=== PATIENT | female | born 1965 | race American Indian/Alaskan Native ===

== ENCOUNTER 2019-03-02 06:55 | Emergency (ER) | payer MEDICAID ==
[2019-03-02] MEDS ORDERED: DUONEB *Not for PRN Use IH ONE ×2 (08:28→10:29)
--- NOTE | 2019-03-02 09:06 | XRay Report ---
AP CHEST: HISTORY: Difficulty in breathing Moderate emphysematous changes are identified in the upper lung zones. No evidence for infiltrate, pleural fluid or pneumothorax. Heart and mediastinal structures are within normal limits. The bony structures are grossly intact. IMPRESSION: Emphysema.
[2019-03-02 09:19] LABS: Basophils % (Auto) 0.3 % (0.0-1.8); Eosinophils % (Auto) 0.5 % (0.0-4.3); Hematocrit 34.7 % (30.3-42.9); Hemoglobin 11.3 gm/dl (10.1-14.3); Lymphocytes # (Auto) 0.6 K/mm3 (1.2-5.4); Lymphocytes % (Auto) 11.8 % (13.4-35.0); Mean Corpuscular HGB Conc 33 % (30-34); Mean Corpuscular Volume 74 fl (79-97); Monocytes # (Auto) 0.1 K/mm3 (0.0-0.8); Monocytes % (Auto) 2.9 % (0.0-7.3); Platelet Count 278 K/mm3 (140-440); Red Blood Count 4.71 M/mm3 (3.65-5.03); Red Cell Distribution Width 16.1 % (13.2-15.2)
[2019-03-02 09:33] LABS: INR 0.91 (0.87-1.13)
[2019-03-02 09:34] LABS: Partial Thromboplastin Time 25.2 Sec. (24.2-36.6)
[2019-03-02 09:40] LABS: BUN/Creatinine Ratio 17; Blood Urea Nitrogen 15 mg/dL (7-17); Calcium 8.8 mg/dL (8.4-10.2); Hemolysis Index 0
[2019-03-02 09:41] LABS: Creatine Kinase MB 2.3 ng/mL (0.0-4.0)
[2019-03-02] MEDS ORDERED: DELTASONE PO ONE (10:01)
--- NOTE | 2019-03-02 10:04 | Emergency Department Report ---
ED Shortness of Breath HPI - General Chief Complaint: Dyspnea/Respdistress Stated Complaint: BOAZ Time Seen by Provider: 03/02/19 08:28 Source: patient Mode of arrival: Ambulatory Limitations: No Limitations - History of Present Illness Initial Comments: 53-year-old female states that she is "rushing and panicking". Patient resides in a homeless senior care. Apparently she was trying to get back to receive some personal belongings. She stated that she was late and the senior care was locked. She had shortness of breath. She was transported via EMS for further care and evaluation. Apparently she has a history of COPD. She denies chest pain. She denies recent cough fever or chills. She is not complaining of leg edema. She does mention that she has had some pain affecting her right lower extremity. Initially she states the knee and then later the entire extremity. MD Complaint: shortness of breath, anxiety -: Gradual Known History Of: COPD Context: occured during exertion - Related Data Previous Rx's Medication Instructions Recorded Last Taken Type predniSONE [Deltasone] 40 mg PO QDAY #10 tab 03/02/19 Unknown Rx Allergies Allergy/AdvReac Type Severity Reaction Status Date / Time aspirin Allergy Itching Verified 03/02/19 07:09 codeine Allergy Itching Verified 03/02/19 07:09 ED Review of Systems ROS: Stated complaint: BOAZ Other details as noted in HPI Constitutional: denies: chills, fever Eyes: denies: eye pain, eye discharge, vision change ENT: denies: ear pain, throat pain Respiratory: shortness of breath, wheezing. denies: cough Cardiovascular: denies: chest pain, palpitations Endocrine: no symptoms reported Gastrointestinal: denies: abdominal pain, nausea, diarrhea Genitourinary: denies: urgency, dysuria, discharge Musculoskeletal: as per HPI. denies: back pain, joint swelling, arthralgia Skin: denies: rash, lesions Neurological: denies: headache, weakness, paresthesias Psychiatric: denies: anxiety, depression Hematological/Lymphatic: denies: easy bleeding, easy bruising ED Past Medical Hx - Past Medical History Hx Arthritis: Yes Hx Asthma: Yes Additional medical history: emphysema - Surgical History Hx Breast Surgery: Yes Additional Surgical History: tubal ligation - Social History Smoking Status: Never Smoker Substance Use Type: None - Medications Home Medications: Home Medications Medication Instructions Recorded Confirmed Last Taken Type predniSONE [Deltasone] 40 mg PO QDAY #10 tab 03/02/19 Unknown Rx ED Physical Exam - General Limitations: No Limitations General appearance: alert, in no apparent distress, other (somewhat tachypneic) - Head Head exam: Present: atraumatic, normocephalic - Eye Eye exam: Present: normal appearance. Absent: scleral icterus - ENT ENT exam: Present: mucous membranes moist - Neck Neck exam: Present: normal inspection - Respiratory Respiratory exam: Present: decreased breath sounds, prolonged expiratory. Absent: respiratory distress, accessory muscle use - Cardiovascular Cardiovascular Exam: Present: regular rate, normal rhythm. Absent: systolic murmur, diastolic murmur, rubs, gallop - GI/Abdominal GI/Abdominal exam: Present: soft, normal bowel sounds. Absent: distended, tenderness, guarding, rebound, rigid - Extremities Exam Extremities exam: Present: normal inspection, joint swelling (right knee), other (perhaps some chronic right knee deformity). Absent: pedal edema, calf tenderness - Back Exam Back exam: Present: normal inspection - Neurological Exam Neurological exam: Present: alert, oriented X3, CN II-XII intact. Absent: motor sensory deficit - Psychiatric Psychiatric exam: Present: normal affect, normal mood - Skin Skin exam: Present: warm, dry, intact, normal color. Absent: rash ED Course Vital Signs 03/02/19 03/02/19 03/02/19 07:09 08:15 08:52 Temperature 97.8 F 97.7 F Pulse Rate 72 65 Pulse Rate [ 72 Anterior Bilateral Throughout] Respiratory 18 25 H Rate Respiratory 20 Rate [Anterior Bilateral Throughout] Blood Pressure 146/62 Blood Pressure 146/73 [Right] O2 Sat by Pulse 95 98 Oximetry 03/02/19 03/02/19 03/02/19 09:15 10:33 10:52 Temperature 98 F Pulse Rate 64 Pulse Rate [ 68 70 Anterior Bilateral Throughout] Respiratory 25 H Rate Respiratory 20 20 Rate [Anterior Bilateral Throughout] Blood Pressure Blood Pressure 112/55 [Right] O2 Sat by Pulse 95 Oximetry 03/02/19 11:07 Temperature Pulse Rate Pulse Rate [ 72 Anterior Bilateral Throughout] Respiratory Rate Respiratory 20 Rate [Anterior Bilateral Throughout] Blood Pressure Blood Pressure [Right] O2 Sat by Pulse Oximetry - Reevaluation(s) Reevaluation #1: Given a neb with improvement. By mouth prednisone. Chest x-ray nothing acute. 03/02/19 10:07 Reevaluation #2: Discussed with lift team technician. She states no DVT. She also mentions incidentally that there is triphasic flow throughout the circulation of the right lower extremity. 03/02/19 10:08 ED Medical Decision Making - Lab Data Result diagrams: 03/02/19 08:50 03/02/19 08:50 Laboratory Results - last 24 hr 03/02/19 03/02/19 03/02/19 08:50 08:50 08:50 WBC 5.1 RBC 4.71 Hgb 11.3 Hct 34.7 MCV 74 L MCH 24 L MCHC 33 RDW 16.1 H Plt Count 278 Lymph % (Auto) 11.8 L [place] % (Auto) 2.9 Eos % (Auto) 0.5 Baso % (Auto) 0.3 Lymph # 0.6 L [place] # 0.1 Eos # 0.0 Baso # 0.0 Seg Neutrophils % 84.5 H Seg Neutrophils # 4.3 PT INR APTT D-Dimer Sodium 142 Potassium 4.0 Chloride 108.3 H Carbon Dioxide 22 Anion Gap 16 BUN 15 Creatinine 0.9 Estimated GFR > 60 BUN/Creatinine Ratio 17 Glucose 106 H Lactic Acid 1.50 Calcium 8.8 Magnesium 2.10 CK-MB (CK-2) Troponin T NT-Pro-B Natriuret Pep 03/02/19 03/02/19 03/02/19 08:50 08:50 08:50 WBC RBC Hgb Hct MCV MCH MCHC RDW Plt Count Lymph % (Auto) [place] % (Auto) Eos % (Auto) Baso % (Auto) Lymph # [place] # Eos # Baso # Seg Neutrophils % Seg Neutrophils # PT 12.8 INR 0.91 APTT 25.2 D-Dimer 141.38 Sodium Potassium Chloride Carbon Dioxide Anion Gap BUN Creatinine Estimated GFR BUN/Creatinine Ratio Glucose Lactic Acid Calcium Magnesium CK-MB (CK-2) 2.3 Troponin T < 0.010 NT-Pro-B Natriuret Pep 98.87 Laboratory Results - last 24 hr 03/02/19 03/02/19 03/02/19 08:50 08:50 08:50 WBC 5.1 RBC 4.71 Hgb 11.3 Hct 34.7 MCV 74 L MCH 24 L MCHC 33 RDW 16.1 H Plt Count 278 Lymph % (Auto) 11.8 L [place] % (Auto) 2.9 Eos % (Auto) 0.5 Baso % (Auto) 0.3 Lymph # 0.6 L [place] # 0.1 Eos # 0.0 Baso # 0.0 Seg Neutrophils % 84.5 H Seg Neutrophils # 4.3 PT INR APTT D-Dimer Sodium 142 Potassium 4.0 Chloride 108.3 H Carbon Dioxide 22 Anion Gap 16 BUN 15 Creatinine 0.9 Estimated GFR > 60 BUN/Creatinine Ratio 17 Glucose 106 H Lactic Acid 1.50 Calcium 8.8 Magnesium 2.10 Total Creatine Kinase CK-MB (CK-2) CK-MB (CK-2) Rel Index Troponin T NT-Pro-B Natriuret Pep Urine Color Urine Turbidity Urine pH Ur Specific [place] Urine Protein Urine Glucose (UA) Urine Ketones Urine Blood Urine Nitrite Ur Reducing Substances Urine Bilirubin Urine Ictotest Urine Urobilinogen Ur Leukocyte Esterase Urine WBC (Auto) Urine RBC (Auto) U Epithel Cells (Auto) Urine Mucus Urine Opiates Screen Urine Methadone Screen Ur Barbiturates Screen Ur Phencyclidine Scrn Ur Amphetamines Screen U Benzodiazepines Scrn Urine Cocaine Screen U Marijuana (THC) Screen Drugs of Abuse Note 03/02/19 03/02/19 03/02/19 08:50 08:50 08:50 WBC RBC Hgb Hct MCV MCH MCHC RDW Plt Count Lymph % (Auto) [place] % (Auto) Eos % (Auto) Baso % (Auto) Lymph # [place] # Eos # Baso # Seg Neutrophils % Seg Neutrophils # PT 12.8 INR 0.91 APTT 25.2 D-Dimer 141.38 Sodium Potassium Chloride Carbon Dioxide Anion Gap BUN Creatinine Estimated GFR BUN/Creatinine Ratio Glucose Lactic Acid Calcium Magnesium Total Creatine Kinase 170 H CK-MB (CK-2) 2.3 CK-MB (CK-2) Rel Index 1.3 Troponin T < 0.010 NT-Pro-B Natriuret Pep 98.87 Urine Color Urine Turbidity Urine pH Ur Specific [place] Urine Protein Urine Glucose (UA) Urine Ketones Urine Blood Urine Nitrite Ur Reducing Substances Urine Bilirubin Urine Ictotest Urine Urobilinogen Ur Leukocyte Esterase Urine WBC (Auto) Urine RBC (Auto) U Epithel Cells (Auto) Urine Mucus Urine Opiates Screen Urine Methadone Screen Ur Barbiturates Screen Ur Phencyclidine Scrn Ur Amphetamines Screen U Benzodiazepines Scrn Urine Cocaine Screen U Marijuana (THC) Screen Drugs of Abuse Note 03/02/19 03/02/19 10:33 10:33 WBC RBC Hgb Hct MCV MCH MCHC RDW Plt Count Lymph % (Auto) [place] % (Auto) Eos % (Auto) Baso % (Auto) Lymph # [place] # Eos # Baso # Seg Neutrophils % Seg Neutrophils # PT INR APTT D-Dimer Sodium Potassium Chloride Carbon Dioxide Anion Gap BUN Creatinine Estimated GFR BUN/Creatinine Ratio Glucose Lactic Acid Calcium Magnesium Total Creatine Kinase CK-MB (CK-2) CK-MB (CK-2) Rel Index Troponin T NT-Pro-B Natriuret Pep Urine Color Yellow Urine Turbidity Slightly-cloudy Urine pH 5.0 Ur Specific [place] 1.026 Urine Protein <15 mg/dl Urine Glucose (UA) Neg Urine Ketones Tr Urine Blood Sm Urine Nitrite Neg Ur Reducing Substances Not Reportable Urine Bilirubin Neg Urine Ictotest Not Reportable Urine Urobilinogen < 2.0 Ur Leukocyte Esterase Neg Urine WBC (Auto) 1.0 Urine RBC (Auto) 4.0 U Epithel Cells (Auto) 9.0 Urine Mucus 1+ Urine Opiates Screen Presumptive negative Urine Methadone Screen Presumptive negative Ur Barbiturates Screen Presumptive negative Ur Phencyclidine Scrn Presumptive negative Ur Amphetamines Screen Presumptive negative U Benzodiazepines Scrn Presumptive negative Urine Cocaine Screen Presumptive negative U Marijuana (THC) Screen Presumptive negative Drugs of Abuse Note Disclamer Critical care attestation.: If time is entered above; I have spent that time in minutes in the direct care of this critically ill patient, excluding procedure time. ED Disposition Clinical Impression: COPD exacerbation Disposition: DC-01 TO HOME OR SELFCARE Is pt being admited?: No Does the pt Need Aspirin: No Condition: Stable Instructions: Chronic Obstructive Pulmonary Disease (ED) Additional Instructions: Avoid smoking. Rx prednisone. Follow up with primary care. Return any acute change or problem. Prescriptions: predniSONE [Deltasone] 40 mg PO QDAY #10 tab Referrals: CODI ESTRELLA MD [Primary Care Provider] - 3-5 Days [facility] [Provider Group] - 3-5 Days Time of Disposition: 12:04
[2019-03-02] MEDS ORDERED: ATIVAN PO ONE (10:25)
[2019-03-02 11:11] LABS: Mucus,Urine 1+ /HPF
[2019-03-02 11:12] LABS: Bilirubin,Urine NEG (Negative); Blood,Urine SM (Negative); Color,Urine Yellow (Yellow); Protein,Urine <15 mg/dL mg/dL (Negative); Urobilinogen,Urine < 2.0 mg/dL (<2.0)
[2019-03-02 11:21] LABS: Amphetamine Screen,Urine PRESUMPTIVE NEGATIVE; Benzodiazepines Screen,Urine PRESUMPTIVE NEGATIVE; Cannabinoid Screen,Urine PRESUMPTIVE NEGATIVE; Cocaine Screen,Urine PRESUMPTIVE NEGATIVE; Methadone Screen,Urine PRESUMPTIVE NEGATIVE; Opiate Screen,Urine PRESUMPTIVE NEGATIVE
--- NOTE | 2019-03-02 11:22 | Vascular Lab Report ---
PROCEDURE: VL VENOUS DUPLEX LE RT TECHNIQUE: Duplex Doppler sonography of the right lower extremity. Pierce scale imaging with and witho ut compression, spectral waveform analysis with and without augmentation, and color flow Doppler were employed. HISTORY: right leg pain COMPARISONS: None FINDINGS: Deep Venous Thrombus: None Superficial Venous Thrombus: None Venous valvular incompetence: None Soft tissue abnormality: None IMPRESSION: No evidence of deep venous thrombosis. This document is electronically signed by Kaley Wesley MD., Mar 02 2019 11:20:48 AM ET
[2019-03-02 17:26] VITALS: BP 120/86
== END 2019-03-02 17:10 | disposition home or self-care (01) ==
LOC: ED 06:55
DX: J44.1 Chronic obstructive pulmonary disease with (acute) exacerbation (principal); M25.561 Pain in right knee; G89.29 Other chronic pain; M19.90 Unspecified osteoarthritis, unspecified site; Z98.51 Tubal ligation status; Z88.6 Allergy status to analgesic agent; Z88.4 Allergy status to anesthetic agent
CPT/HCPCS: 36415; 71045; 80048; 80307; 81001; 82140; 82550; 82553; 83735; 83880; 84484; 85025; 85379; 85610; 85730; 87040; 93005; 93010; 93971; 94640; 99285; J7512

== ENCOUNTER 2019-03-06 21:36 | Inpatient (IN) | payer MEDICAID ==
[2019-03-06] MEDS ORDERED: PROVENTIL IH ONE (21:46)
[2019-03-06] MEDS ORDERED: ATROVENT IH ONE (21:46)
[2019-03-06] MEDS ORDERED: MAGNESIUM SULFATE 2GM/50ML 2 GM/50 ML BAG IV ONE (21:47)
--- NOTE | 2019-03-06 21:52 | Emergency Department Report ---
HPI - General Time Seen by Provider: 03/06/19 21:39 - HPI HPI: Room 24 The patient is a 53-year-old female presenting with chief complaint shortness of breath. Patient states for the past 2-3 weeks she's had constant COPD exacerbation. The patient states she initially had a dry cough but has now become productive of yellowish-green sputum. Patient denies history of fever. EMS was called to the patient's home for shortness of breath this evening and the report finding the patient satting approximately 88% on room air. The patient was a portable machine cutter Solu-Medrol 125 mg IV and a DuoNeb prior to arrival. Patient presents still audibly wheezing with accessory muscle use Location: Lungs Duration: 2-3 weeks Quality: Shortness of breath Severity: Moderate Modifying factors: [see above] Context: [see above] Mode of transportation: [not driving] ED Past Medical Hx - Past Medical History Hx Arthritis: Yes Hx Asthma: Yes Hx COPD: Yes (no home O2) - Surgical History Hx Breast Surgery: Yes Additional Surgical History: tubal ligation, pins placed in bilateral small fingers - Family History Family history: no significant - Social History Smoking Status: Current Every Day Smoker (1 cigarette daily) Substance Use Type: None - Medications Home Medications: Home Medications Medication Instructions Recorded Confirmed Last Taken Type predniSONE [Deltasone] 40 mg PO QDAY #10 tab 03/02/19 Unknown Rx ED Review of Systems ROS: Stated complaint: BOAZ Other details as noted in HPI Constitutional: denies: fever Eyes: denies: eye pain ENT: denies: throat pain Respiratory: cough, shortness of breath Cardiovascular: denies: chest pain Endocrine: no symptoms reported Gastrointestinal: denies: abdominal pain Genitourinary: denies: dysuria Musculoskeletal: denies: back pain Neurological: denies: headache Physical Exam - Physical Exam Physical Exam: GENERAL: The patient is well-developed well-nourished female lying on stretcher with audible wheezing. [] HEENT: Normocephalic. Atraumatic. Extraocular motions are intact. Patient has moist mucous membranes. NECK: Supple. Trachea midline CHEST/LUNGS: Diffuse wheezing. Accessory muscle use HEART/CARDIOVASCULAR: Regular. There is no tachycardia. There is no gallop rub or murmur. ABDOMEN: Abdomen is soft, nontender. Patient has normal bowel sounds. There is no abdominal distention. SKIN: There is no rash. There is no edema. There is no diaphoresis. NEURO: The patient is awake, alert, and oriented. The patient is cooperative. The patient has normal speech MUSCULOSKELETAL: There is no evidence of acute injury. ED Course - Reevaluation(s) Reevaluation #1: 03/06/19 22:35 Patient states she is improved slightly with BiPAP but still exhibits increased work of breathing. ED Medical Decision Making - Lab Data Result diagrams: 03/06/19 21:54 03/06/19 21:54 Laboratory Tests 03/06/19 03/06/19 21:54 21:54 WBC 7.7 RBC 4.50 Hgb 10.7 Hct 33.0 MCV 73 L MCH 24 L MCHC 32 RDW 16.1 H Plt Count 262 Lymph % (Auto) 9.9 L [place] % (Auto) 7.9 H Eos % (Auto) 0.1 Baso % (Auto) 0.7 Lymph # 0.8 L [place] # 0.6 Eos # 0.0 Baso # 0.1 Seg Neutrophils % 81.4 H Seg Neutrophils # 6.3 Sodium 144 Potassium 3.4 L Chloride 107.0 Carbon Dioxide 22 Anion Gap 18 BUN 22 H Creatinine 0.9 Estimated GFR > 60 BUN/Creatinine Ratio 24 Glucose 153 H Calcium 8.9 NT-Pro-B Natriuret Pep 240.2 - Radiology Data Radiology results: image reviewed (chest x-ray) interpreted by me: Chest x-ray-left lower lobe atelectasis. No pneumothorax - Differential Diagnosis COPD exacerbation, pneumonia, bronchitis, CHF Critical care attestation.: If time is entered above; I have spent that time in minutes in the direct care of this critically ill patient, excluding procedure time. ED Disposition Clinical Impression: COPD exacerbation, Shortness of breath Disposition: OP ADMIT IP TO THIS HOSP Is pt being admited?: Yes Does the pt Need Aspirin: No Condition: Stable Instructions: Chronic Obstructive Pulmonary Disease (ED) Referrals: PRIMARY CARE, [Primary Care Provider] - 3-5 Days Time of Disposition: 22:36 (Hospitalist paged. (Dr. Kristen Dai))
[2019-03-06 22:11] LABS: Basophils # (Auto) 0.1 K/mm3 (0.0-0.1); Basophils % (Auto) 0.7 % (0.0-1.8); Eosinophils % (Auto) 0.1 % (0.0-4.3); Hemoglobin 10.7 gm/dl (10.1-14.3); Lymphocytes # (Auto) 0.8 K/mm3 (1.2-5.4); Lymphocytes % (Auto) 9.9 % (13.4-35.0); Mean Corpuscular HGB Conc 32 % (30-34); Mean Corpuscular Volume 73 fl (79-97); Monocytes # (Auto) 0.6 K/mm3 (0.0-0.8); Monocytes % (Auto) 7.9 % (0.0-7.3); Platelet Count 262 K/mm3 (140-440); Red Cell Distribution Width 16.1 % (13.2-15.2)
[2019-03-06 22:26] LABS: BUN/Creatinine Ratio 24; Blood Urea Nitrogen 22 mg/dL (7-17); Calcium 8.9 mg/dL (8.4-10.2); Hemolysis Index 8
--- NOTE | 2019-03-06 23:07 | XRay Report ---
PROCEDURE: XR CHEST 1V AP TECHNIQUE: Chest radiograph single view. HISTORY: shortness of breath COMPARISONS: None . FINDINGS: Heart: Normal. Mediastinum/Vessels: Normal. Lungs/Pleural space: Lungs are emphysematous with bullous formation is noted in the right upper lobe .. There are no confluent infiltrates or mass lesions. Pleural spaces are clear. Bony thorax: No acute osseous abnormality. Life support devices: None. IMPRESSION: Emphysema with bullous formation. No acute pulmonary process. This document is electronically signed by Shiva Juarez MD., Mar 06 2019 11:05:53 PM ET
[2019-03-06] MEDS ORDERED: SODIUM CHLORIDE FLUSH SYRINGE 10 ML IV PRN (23:14)
[2019-03-06] MEDS ORDERED: PROVENTIL IH PRN (23:14)
[2019-03-06] MEDS ORDERED: ZOFRAN IV PRN (23:14)
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
[2019-03-06] MEDS ORDERED: K-DUR PO ONE (23:44)
[2019-03-06] MEDS ORDERED: APRESOLINE IV PRN (23:44)
[2019-03-06] MEDS ORDERED: NACL 0.9% 1000 ML 1,000 ML IV SCH (23:45)
[2019-03-07] MEDS ORDERED: K-DUR PO ONE (00:58)
[2019-03-07] MEDS: DUONEB *Not for PRN Use IH SCH ×4 (02:20→20:05)
[2019-03-07] MEDS ORDERED: SOLU-Medrol IV SCH ×2 (05:00→06:00)
[2019-03-07] MEDS: SOLU-Medrol IV SCH ×3 (05:18→17:50)
[2019-03-07 06:54] LABS: Basophils % (Auto) 0.1 % (0.0-1.8); Hematocrit 31.1 % (30.3-42.9); Hemoglobin 10.2 gm/dl (10.1-14.3); Lymphocytes # (Auto) 0.5 K/mm3 (1.2-5.4); Lymphocytes % (Auto) 10.7 % (13.4-35.0); Mean Corpuscular HGB Conc 33 % (30-34); Mean Corpuscular Volume 73 fl (79-97); Monocytes # (Auto) 0.1 K/mm3 (0.0-0.8); Monocytes % (Auto) 1.9 % (0.0-7.3); Platelet Count 267 K/mm3 (140-440); Red Blood Count 4.26 M/mm3 (3.65-5.03); Red Cell Distribution Width 15.8 % (13.2-15.2)
[2019-03-07 07:16] LABS: BUN/Creatinine Ratio 23; Blood Urea Nitrogen 14 mg/dL (7-17); Calcium 8.3 mg/dL (8.4-10.2); Hemolysis Index 3
[2019-03-07] MEDS: PULMICORT IH SCH ×2 (07:54→20:05)
[2019-03-07] MEDS: ULTRAM PO PRN ×2 (09:59→14:58)
[2019-03-07] MEDS: LEVAQUIN 500MG/100ML 500 MG/100 ML BAG IV SCH (09:59)
[2019-03-07] MEDS: HABITROL TD SCH (10:00)
[2019-03-07] MEDS: COLACE PO SCH ×2 (10:00→21:49)
[2019-03-07] MEDS: HEPARIN SUB-Q SCH ×3 (10:00→22:39)
[2019-03-07] MEDS: SODIUM CHLORIDE FLUSH SYRINGE 10 ML IV SCH ×2 (10:00→22:39)
[2019-03-07] MEDS ORDERED: NORVASC PO SCH (10:00)
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
[2019-03-07] MEDS: TYLENOL PO PRN ×2 (13:00→21:55)
[2019-03-07] MEDS: TESSALON PERLES PO SCH ×2 (14:59→21:49)
[2019-03-07] MEDS: CEPACOL X STRENGTH MM PRN (18:43)
[2019-03-07] MEDS: BENADRYL PO PRN (21:55)
[2019-03-08] MEDS: SOLU-Medrol IV SCH ×4 (00:43→19:32)
[2019-03-08] MEDS: DUONEB *Not for PRN Use IH SCH ×4 (02:28→19:23)
[2019-03-08] MEDS: TESSALON PERLES PO SCH ×3 (05:58→21:43)
[2019-03-08] MEDS: PULMICORT IH SCH ×2 (07:58→19:24)
[2019-03-08] MEDS: LEVAQUIN 500MG/100ML 500 MG/100 ML BAG IV SCH (11:51)
[2019-03-08] MEDS: HABITROL TD SCH (11:53)
[2019-03-08] MEDS: HEPARIN SUB-Q SCH ×2 (11:53→21:59)
[2019-03-08] MEDS: SODIUM CHLORIDE FLUSH SYRINGE 10 ML IV SCH ×2 (11:54→21:44)
[2019-03-08] MEDS: COLACE PO SCH ×2 (11:54→21:43)
[2019-03-08] MEDS: TYLENOL PO PRN (12:11)
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
[2019-03-08] MEDS: BENADRYL PO PRN (15:12)
[2019-03-09] MEDS: SOLU-Medrol IV SCH ×4 (00:17→19:27)
[2019-03-09] MEDS: CEPACOL X STRENGTH MM PRN ×2 (00:30→12:10)
[2019-03-09] MEDS: TYLENOL PO PRN ×2 (01:54→12:06)
[2019-03-09] MEDS: DUONEB *Not for PRN Use IH SCH ×5 (02:02→21:06)
[2019-03-09] MEDS: PULMICORT IH SCH ×3 (06:48→21:06)
[2019-03-09] MEDS: TESSALON PERLES PO SCH ×3 (07:10→21:48)
[2019-03-09] MEDS: HEPARIN SUB-Q SCH ×4 (12:00→21:51)
[2019-03-09] MEDS: LEVAQUIN 500MG/100ML 500 MG/100 ML BAG IV SCH (12:00)
[2019-03-09] MEDS: COLACE PO SCH ×2 (12:03→21:48)
[2019-03-09] MEDS: HABITROL TD SCH (12:08)
[2019-03-09] MEDS: SODIUM CHLORIDE FLUSH SYRINGE 10 ML IV SCH ×2 (12:08→21:48)
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
[2019-03-10] MEDS: SOLU-Medrol IV SCH ×4 (01:04→17:17)
[2019-03-10] MEDS: TYLENOL PO PRN ×2 (01:04→06:06)
[2019-03-10] MEDS: TESSALON PERLES PO SCH ×3 (06:06→21:42)
[2019-03-10] MEDS: PULMICORT IH SCH ×2 (08:10→19:35)
[2019-03-10] MEDS: DUONEB *Not for PRN Use IH SCH ×4 (08:10→19:35)
[2019-03-10] MEDS: LEVAQUIN 500MG/100ML 500 MG/100 ML BAG IV SCH (09:19)
[2019-03-10] MEDS: ULTRAM PO PRN (09:19)
[2019-03-10] MEDS: COLACE PO SCH ×2 (09:19→21:41)
[2019-03-10] MEDS: HEPARIN SUB-Q SCH ×2 (09:20→21:41)
[2019-03-10] MEDS: SODIUM CHLORIDE FLUSH SYRINGE 10 ML IV SCH ×2 (09:20→21:42)
[2019-03-10] MEDS: HABITROL TD SCH (09:20)
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
--- NOTE | 2019-03-10 15:20 | Cat Scan Report ---
CTA CHEST: HISTORY: Short of breath. COMPARISON: none. TECHNIQUE: Helical CT in 1.25mm intervals following IV contrast. Pulmonary embolus protocol. Sagittal and coronal reformatted images. Rotational MIP images. FINDINGS: Contrast bolus is satisfactory. No pulmonary embolus is identified. Thyroid gland: Normal. Tracheobronchial tree: Normal. Esophagus: Normal. Heart: Normal. Pericardium: Normal. Mediastinum: Normal. Lung Ambriz: Moderate centrilobular emphysematous changes are identified in both upper lobes. No evidence for infiltrate, nodule or interstitial lung disease. Pleural Spaces: Normal. Musculoskeletal: Intact. IMPRESSION: No evidence for pulmonary embolus. Emphysematous changes.
[2019-03-10] MEDS: celeXA PO SCH (21:45)
[2019-03-10] MEDS: PROTONIX PO SCH (21:46)
[2019-03-11] MEDS: TYLENOL PO PRN (00:04)
[2019-03-11] MEDS: SOLU-Medrol IV SCH ×4 (00:04→18:14)
[2019-03-11] MEDS: TESSALON PERLES PO SCH ×3 (05:42→21:42)
[2019-03-11] MEDS: ULTRAM PO PRN ×2 (05:43→21:47)
[2019-03-11] MEDS: DUONEB *Not for PRN Use IH SCH ×3 (07:58→19:55)
[2019-03-11] MEDS: PULMICORT IH SCH ×2 (07:58→19:55)
[2019-03-11] MEDS: HEPARIN SUB-Q SCH ×3 (11:54→21:42)
[2019-03-11] MEDS: COLACE PO SCH ×2 (11:54→21:42)
[2019-03-11] MEDS: celeXA PO SCH (11:54)
[2019-03-11] MEDS: SODIUM CHLORIDE FLUSH SYRINGE 10 ML IV SCH ×2 (11:55→21:42)
[2019-03-11] MEDS: LEVAQUIN 500MG/100ML 500 MG/100 ML BAG IV SCH (11:55)
[2019-03-11] MEDS: PROTONIX PO SCH (11:55)
[2019-03-11] MEDS: HABITROL TD SCH ×2 (11:55→12:01)
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
[2019-03-11] MEDS: BROVANA NEBU IH SCH (19:55)
[2019-03-12] MEDS: SOLU-Medrol IV SCH ×3 (02:52→17:17)
[2019-03-12] MEDS: TESSALON PERLES PO SCH ×2 (06:00→14:19)
[2019-03-12] MEDS: BROVANA NEBU IH SCH (08:56)
[2019-03-12] MEDS: PULMICORT IH SCH (08:56)
[2019-03-12] MEDS: DUONEB *Not for PRN Use IH SCH ×2 (08:57→15:03)
[2019-03-12] MEDS: HEPARIN SUB-Q SCH (09:05)
[2019-03-12] MEDS: COLACE PO SCH (09:12)
[2019-03-12] MEDS: celeXA PO SCH (09:17)
[2019-03-12] MEDS: HABITROL TD SCH (09:18)
[2019-03-12] MEDS ORDERED: LEVAQUIN PO SCH (10:15)
[2019-03-12] MEDS: SODIUM CHLORIDE FLUSH SYRINGE 10 ML IV SCH (10:29)
[2019-03-12] MEDS: PROTONIX PO SCH (10:29)
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
--- NOTE | 2019-03-12 13:03 | Progress Note ---
Assessment and Plan Acute hypoxemic respiratory failure. Acute chronic obstructive pulmonary disease exacerbation. Tobacco use disorder. Obesity. Hypokalemia, now corrected. - wean supplemental oxygen to keep O2 sat's > 90% - continue bronchodilators with pulmonary hygiene per RT (MICHAEL & LABA) - continue inhaled corticosteroids - continue systemic corticosteroids with slow taper - continue BIPAP prn for increased work of breathing - weight loss counseled - tobacco abstinence counseled - continue other care per attending / other consultants ... re-evaluate in am & prn Subjective Date of service: 03/12/19 Principal diagnosis: Ac hypoxemic resp failure; AE-COPD; Obesity; Hypokalemia Interval history: Patient is seen today for: Acute hypoxemic respiratory failure; Acute chronic obstructive pulmonary disease exacerbation; Tobacco use disorder; Obesity; Hypokalemia Seen and examined at bedside; 24hour events reviewed; nursing and respiratory care staff consulted; no adverse overnight events reported to me; tolerated BIPAP well and less SOB now; denies acute chest pains or palpitations; No N/V/F/C Objective Vital Signs - 12hr 03/12/19 03/12/19 03/12/19 05:38 08:56 09:06 Temperature 97.1 F L Pulse Rate 64 98 H Pulse Rate [ 90 95 H Anterior Bilateral Throughout] Respiratory 18 23 Rate Respiratory 23 20 Rate [Anterior Bilateral Throughout] Blood Pressure 162/85 O2 Sat by Pulse 94 95 Oximetry 03/12/19 12:24 Temperature 98.9 F Pulse Rate 60 Pulse Rate [ Anterior Bilateral Throughout] Respiratory 22 Rate Respiratory Rate [Anterior Bilateral Throughout] Blood Pressure 144/68 O2 Sat by Pulse 95 Oximetry Constitutional: no acute distress, other (middle aged obese female with mildly increased resp effort at rest) Eyes: non-icteric ENT: oropharynx moist, other (mallampati 3) Neck: supple, no lymphadenopathy, no JVD Effort: mildly labored Ascultation: Bilateral: diminished breath sounds, rhonchi Percussion: Bilateral: not dull Cardiovascular: regular rate and rhythm Gastrointestinal: normoactive bowel sounds, soft, non-tender, non-distended Integumentary: normal Extremities: no cyanosis, no edema, pulses normal, no ischemia or petechiae Neurologic: normal mental status, non-focal exam, pupils equal and round, CN II- XII normal Psychiatric: mood appropriate, affect normal CBC and BMP: 03/07/19 06:28 03/07/19 06:19 ABG, PT/INR, D-dimer: ABG POC ABG pH 7.414 (7.35-7.45) 03/10/19 13:10 POC ABG pCO2 42.9 (35-45) 03/10/19 13:10 POC ABG pO2 54 (80-105) L 03/10/19 13:10 POC ABG HCO3 27.5 (22-26 mml/L) 03/10/19 13:10 POC ABG Total CO2 29 (23-27mmol/L) 03/10/19 13:10 POC ABG O2 Sat 88 03/10/19 13:10 Abnormal lab findings: Abnormal Labs 03/06/19 03/06/19 03/06/19 21:54 21:54 23:13 WBC MCV 73 L MCH 24 L RDW 16.1 H Lymph % (Auto) 9.9 L [place] % (Auto) 7.9 H Lymph # 0.8 L Seg Neutrophils % 81.4 H POC ABG pCO2 45.2 H POC ABG pO2 Potassium 3.4 L Chloride BUN 22 H Creatinine Glucose 153 H Calcium 03/07/19 03/07/19 03/07/19 00:03 06:19 06:28 WBC 4.3 L MCV 73 L MCH 24 L RDW 15.8 H Lymph % (Auto) 10.7 L [place] % (Auto) Lymph # 0.5 L Seg Neutrophils % 87.3 H POC ABG pCO2 POC ABG pO2 55 L Potassium Chloride 107.9 H BUN Creatinine 0.6 L Glucose 139 H Calcium 8.3 L 03/10/19 13:10 WBC MCV MCH RDW Lymph % (Auto) [place] % (Auto) Lymph # Seg Neutrophils % POC ABG pCO2 POC ABG pO2 54 L Potassium Chloride BUN Creatinine Glucose Calcium Chest x-ray: image reviewed Allied health notes reviewed: nursing
--- NOTE | 2019-03-12 17:29 | Progress Note ---
Assessment and Plan Acute exacerbation COPD * Continue steroids and nebulizers, obtain CT chest today * put on bipap as she is more hypoxic with increase WOB Acute hypoxic respiratory failure Continue oxygen supplementation Dehydration Received IV fluids Hypokalemia Was replaced Hypertension Continue blood pressure medications, will be optimized Tobacco abuse Cessation counseling performed for 11 minutes, nicotine patches as needed DVT prophylaxis with Lovenox Dispo; to [facility] when improved Subjective Date of service: 03/11/19 Principal diagnosis: Ac hypoxemic resp failure; AE-COPD; Obesity; Hypokalemia Interval history: Symptomatically better Objective - Constitutional Vitals: Vital Signs - 12hr 03/12/19 03/12/19 03/12/19 05:38 08:56 09:06 Temperature 97.1 F L Pulse Rate 64 98 H Pulse Rate [ 90 95 H Anterior Bilateral Throughout] Respiratory 18 23 Rate Respiratory 23 20 Rate [Anterior Bilateral Throughout] Blood Pressure 162/85 O2 Sat by Pulse 94 95 Oximetry 03/12/19 03/12/19 03/12/19 12:24 15:03 15:13 Temperature 98.9 F Pulse Rate 60 Pulse Rate [ 77 80 Anterior Bilateral Throughout] Respiratory 22 Rate Respiratory 20 20 Rate [Anterior Bilateral Throughout] Blood Pressure 144/68 O2 Sat by Pulse 95 Oximetry General appearance: Present: no acute distress, well-nourished - EENT Eyes: PERRL, EOM intact ENT: hearing intact, clear oral mucosa Ears: bilateral: normal - Neck Neck: supple, normal ROM - Respiratory Respiratory effort: normal Respiratory: bilateral: CTA - Breasts Breasts: normal - Cardiovascular Heart rate: 76 Rhythm: regular Heart Sounds: Present: S1 & S2. Absent: gallop, rub Extremities: pulses intact, No edema, normal color, Full ROM - Gastrointestinal General gastrointestinal: Present: soft, non-tender, non-distended, normal bowel sounds - Genitourinary Female genitourinary: normal - Integumentary Integumentary: clear, warm, dry - Musculoskeletal Musculoskeletal: 1, strength equal bilaterally - Neurologic Neurologic: moves all extremities - Psychiatric Psychiatric: memory intact, appropriate mood/affect, intact judgment & insight - Labs CBC & Chem 7: 03/07/19 06:28 03/07/19 06:19
--- NOTE | 2019-03-12 17:43 | Discharge Summary ---
Providers - Providers Date of Admission: 03/06/19 23:14 Date of discharge: 03/12/19 Attending physician: JIMENEZ MOSHER 03/10/19 16:50 Consult to Physician [CONS] Routine Comment: Consulting Provider: BAKARI HAIDER Physician Instructions: Reason For Exam: copd Primary care physician: [employer]ER Hospitalization Condition: Stable Hospital course: Acute exacerbation COPD * Continue steroids and nebulizers, obtain CT chest today * put on bipap as she is more hypoxic with increase WOB * Patient to follow-up with the pulmonology and get BiPAP as outpatient * Patient to be discharged on prednisone taper pack nebulizer treatments and Levaquin. Acute hypoxic respiratory failure Continue oxygen supplementation Patient being discharged her nebulizer machine nebulizer solution and the follow-up Atrovent and albuterol and prednisone taper pack along with Levaquin. Dehydration Received IV fluids Hypokalemia Was replaced Hypertension Continue blood pressure medications, will be optimized Tobacco abuse Cessation counseling done at the time of admission and next day also Disposition: DC-30 STILL A PATIENT Core Measure Documentation - Palliative Care Palliative Care/ Comfort Measures: Not Applicable - Core Measures Any of the following diagnoses?: none Exam - Constitutional Vitals: Temp Pulse Resp BP Pulse Ox 98.9 F 80 20 144/68 95 03/12/19 12:24 03/12/19 15:13 03/12/19 15:13 03/12/19 12:24 03/12/19 12:24 General appearance: Present: no acute distress, well-nourished - EENT Eyes: Present: PERRL ENT: hearing intact, clear oral mucosa - Neck Neck: Present: supple, normal ROM - Respiratory Respiratory effort: normal Respiratory: right: wheezing, bilateral: CTA (no rhonchi or rales) - Cardiovascular Heart rate: 76 Rhythm: regular (76) Heart Sounds: Present: S1 & S2. Absent: rub, click - Extremities Extremities: pulses symmetrical, No edema Peripheral Pulses: within normal limits - Abdominal General gastrointestinal: Present: soft, non-tender, non-distended, normal bowel sounds Female genitourinary: Present: normal - Rectal Rectal Exam: deferred - Integumentary Integumentary: Present: clear, warm, dry - Musculoskeletal Musculoskeletal: gait normal, strength equal bilaterally - Psychiatric Psychiatric: appropriate mood/affect, intact judgment & insight - Neurologic Neurologic: CNII-XII intact, moves all extremities - Allied Health Allied health notes reviewed: nursing, case management Plan Activity: no restrictions Diet: low fat, low cholesterol, low salt Follow up with: PRIMARY CARE, [Primary Care Provider] - 3-5 Days BAKARI HAIDER MD [Staff Physician] - 7 Days
[2019-03-12 19:01] VITALS: BP 145/74
== END 2019-03-12 19:35 | disposition home or self-care (01) | DRG 189 ==
LOC: ED 21:36 → EEVIPCON 23:14 → 3A 23:14
PROVIDERS: ADMIT Internal Medicine; ATTEND Internal Medicine
PROC: 4A033R1 Measurement of Arterial Saturation, Peripheral, Percutaneous Approach (ICD-10-PCS; principal; 2019-03-06)
PROC: 5A09357 Assistance with Respiratory Ventilation, Less than 24 Consecutive Hours, Continuous Positive Airway Pressure (ICD-10-PCS; 2019-03-06)
PROC: 5A09357 Assistance with Respiratory Ventilation, Less than 24 Consecutive Hours, Continuous Positive Airway Pressure (ICD-10-PCS; 2019-03-10)
PROC: 5A09357 Assistance with Respiratory Ventilation, Less than 24 Consecutive Hours, Continuous Positive Airway Pressure (ICD-10-PCS; 2019-03-11)
PROC: 5A09357 Assistance with Respiratory Ventilation, Less than 24 Consecutive Hours, Continuous Positive Airway Pressure (ICD-10-PCS; 2019-03-12)
DX: J96.01 Acute respiratory failure with hypoxia (principal); J44.1 Chronic obstructive pulmonary disease with (acute) exacerbation; F17.210 Nicotine dependence, cigarettes, uncomplicated; E86.0 Dehydration; E87.6 Hypokalemia; Z88.2 Allergy status to sulfonamides; Z98.51 Tubal ligation status; Z88.5 Allergy status to narcotic agent; Z71.6 Tobacco abuse counseling
CPT/HCPCS: 36415; 36600; 71045; 71275; 80048; 82803; 83880; 85025; 87040; 87070; 87205; 94640; 94760; 96365; 99406; G0378; J1644; J1956; J2930; J3475; J7030; Q9967

== ENCOUNTER 2019-05-04 18:44 | Emergency (ER) | payer MEDICAID ==
[2019-05-04 19:16] VITALS: BP 142/77
--- NOTE | 2019-05-04 19:17 | Event Note ---
ED Screening Note Date of service: 05/04/19 Time: 19:15 ED Screening Note: This is a 53 y.o. F. that presents to the ER with dental pain on left side of mouth. Patient reports a chipped tooth on left upper side with repair in [place] 6 mo-1 year ago. This initial assessment/diagnostic orders/clinical plan/treatment(s) is/are subject to change based on patients health status, clinical progression and re- assessment by fellow clinical providers in the ED. Further treatment and workup at subsequent clinical providers discretion. Patient/guardian urged not to elope from the ED as their condition may be serious if not clinically assessed and managed. Initial orders include:
[2019-05-04] MEDS ORDERED: ULTRAM PO ONE (22:21)
[2019-05-04] MEDS ORDERED: CLEOCIN PO ONE (22:21)
--- NOTE | 2019-05-04 22:30 | Emergency Department Report ---
ED ENT HPI - General Chief complaint: Dental/Oral Stated complaint: ABSCESS/MOUTH Time Seen by Provider: 05/04/19 19:15 Source: patient Mode of arrival: Ambulatory Limitations: No Limitations - History of Present Illness Initial comments: This is a 53 y.o. F. that presents to the ER with dental pain on left side of mouth. Patient reports a chipped tooth on left upper side with repair in [place] 6 mo-1 year ago. pt denies fever or chills no trismus, pt is tolerating po intake there is no facial swelling no mastoid tenderness MD complaint: tooth pain Onset/Timin -: month(s) Location: tooth # (15) Severity: moderate Severity scale (0 -10): 6 Quality: aching Consistency: constant Improves with: none Worsens with: other (hot and cold stimuli) Context- Dental: history of dental caries, poor dental care Associated Symptoms: toothache. denies: fever, cough, gum swelling, pain with swallowing, sore throat, tinnitus, hearing loss, discharge from ear, rhinorrhea - Related Data Previous Rx's Medication Instructions Recorded Last Taken Type predniSONE [Deltasone] 40 mg PO QDAY #10 tab 03/02/19 Unknown Rx ALBUTEROL NEB's [Proventil 0.083% 2.5 mg IH Q3HRT PRN #50 nebu 03/12/19 Unknown Rx NEBS] Arformoterol Nebu [Brovana Nebu] 15 mcg IH Q12HRT #1 ml 03/12/19 Unknown Rx Citalopram [Celexa] 20 mg PO QDAY #30 tablet 03/12/19 Unknown Rx Ipratropium [Atrovent NEB] 0.5 mg IH Q4HR #50 ml 03/12/19 Unknown Rx Pantoprazole [Protonix TAB] 40 mg PO QDAY 30 Days #30 tablet 03/12/19 Unknown Rx Prednisone [predniSONE 10 mg 10 mg PO .TAPER #1 tab.ds.pk 03/12/19 Unknown Rx (6-Day Pack, 21 Tabs)] levoFLOXacin [Levaquin TAB] 500 mg PO Q24HR #7 tablet 03/12/19 Unknown Rx traMADol [Ultram 50 MG tab] 50 mg PO Q6H PRN #30 tablet 03/12/19 Unknown Rx Chlorhexidine Mouthwash [Peridex] 15 ml MM BID #1 bottle 07/23/19 Unknown Rx Clindamycin [Clindamycin CAP] 300 mg PO Q8H 10 Days #30 cap 05/04/19 Unknown Rx traMADol [Ultram] 50 mg PO Q6HR PRN #12 tablet 05/04/19 Unknown Rx Allergies Allergy/AdvReac Type Severity Reaction Status Date / Time aspirin Allergy Itching Verified 03/02/19 07:09 codeine Allergy Itching Verified 03/02/19 07:09 ED Dental HPI - General Chief complaint: Dental/Oral Stated complaint: ABSCESS/MOUTH Time Seen by Provider: 05/04/19 19:15 Source: patient Mode of arrival: Ambulatory Limitations: No Limitations - Related Data Previous Rx's Medication Instructions Recorded Last Taken Type predniSONE [Deltasone] 40 mg PO QDAY #10 tab 03/02/19 Unknown Rx ALBUTEROL NEB's [Proventil 0.083% 2.5 mg IH Q3HRT PRN #50 nebu 03/12/19 Unknown Rx NEBS] Arformoterol Nebu [Brovana Nebu] 15 mcg IH Q12HRT #1 ml 03/12/19 Unknown Rx Citalopram [Celexa] 20 mg PO QDAY #30 tablet 03/12/19 Unknown Rx Ipratropium [Atrovent NEB] 0.5 mg IH Q4HR #50 ml 03/12/19 Unknown Rx Pantoprazole [Protonix TAB] 40 mg PO QDAY 30 Days #30 tablet 03/12/19 Unknown Rx Prednisone [predniSONE 10 mg 10 mg PO .TAPER #1 tab.ds.pk 03/12/19 Unknown Rx (6-Day Pack, 21 Tabs)] levoFLOXacin [Levaquin TAB] 500 mg PO Q24HR #7 tablet 03/12/19 Unknown Rx traMADol [Ultram 50 MG tab] 50 mg PO Q6H PRN #30 tablet 03/12/19 Unknown Rx Chlorhexidine Mouthwash [Peridex] 15 ml MM BID #1 bottle 05/04/19 Unknown Rx Clindamycin [Clindamycin CAP] 300 mg PO Q8H 10 Days #30 cap 05/04/19 Unknown Rx traMADol [Ultram] 50 mg PO Q6HR PRN #12 tablet 05/04/19 Unknown Rx Allergies Allergy/AdvReac Type Severity Reaction Status Date / Time aspirin Allergy Itching Verified 03/02/19 07:09 codeine Allergy Itching Verified 03/02/19 07:09 ED Review of Systems ROS: Stated complaint: ABSCESS/MOUTH Other details as noted in HPI Constitutional: denies: chills, fever Eyes: denies: eye pain, eye discharge, vision change ENT: dental pain. denies: ear pain, throat pain, hearing loss, epistaxis, congestion Respiratory: denies: cough, shortness of breath, wheezing Cardiovascular: denies: chest pain, palpitations Endocrine: no symptoms reported Gastrointestinal: denies: abdominal pain, nausea, diarrhea Genitourinary: denies: urgency, dysuria, discharge Musculoskeletal: denies: back pain, joint swelling, arthralgia Skin: denies: rash, lesions Neurological: denies: headache, weakness, paresthesias Psychiatric: denies: anxiety, depression Hematological/Lymphatic: denies: easy bleeding, easy bruising ED Past Medical Hx - Past Medical History Hx Arthritis: Yes Hx Asthma: Yes Hx COPD: Yes Additional medical history: emphysema - Surgical History Hx Breast Surgery: Yes Additional Surgical History: tubal ligation, pins placed in bilateral small fingers - Social History Smoking Status: Never Smoker Substance Use Type: None - Medications Home Medications: Home Medications Medication Instructions Recorded Confirmed Last Taken Type predniSONE [Deltasone] 40 mg PO QDAY #10 tab 03/02/19 03/07/19 Unknown Rx ALBUTEROL NEB's [Proventil 0.083% 2.5 mg IH Q3HRT PRN #50 nebu 03/12/19 Unknown Rx NEBS] Arformoterol Nebu [Brovana Nebu] 15 mcg IH Q12HRT #1 ml 03/12/19 Unknown Rx Citalopram [Celexa] 20 mg PO QDAY #30 tablet 03/12/19 Unknown Rx Ipratropium [Atrovent NEB] 0.5 mg IH Q4HR #50 ml 03/12/19 Unknown Rx Pantoprazole [Protonix TAB] 40 mg PO QDAY 30 Days #30 tablet 03/12/19 Unknown Rx Prednisone [predniSONE 10 mg 10 mg PO .TAPER #1 tab.ds.pk 03/12/19 Unknown Rx (6-Day Pack, 21 Tabs)] levoFLOXacin [Levaquin TAB] 500 mg PO Q24HR #7 tablet 03/12/19 Unknown Rx traMADol [Ultram 50 MG tab] 50 mg PO Q6H PRN #30 tablet 03/12/19 Unknown Rx Chlorhexidine Mouthwash [Peridex] 15 ml MM BID #1 bottle 05/04/19 Unknown Rx Clindamycin [Clindamycin CAP] 300 mg PO Q8H 10 Days #30 cap 05/04/19 Unknown Rx traMADol [Ultram] 50 mg PO Q6HR PRN #12 tablet 05/04/19 Unknown Rx ED Physical Exam - General Limitations: No Limitations General appearance: alert, in no apparent distress - Head Head exam: Present: atraumatic, normocephalic - Eye Eye exam: Present: normal appearance, PERRL, EOMI Pupils: Present: normal accommodation - ENT ENT exam: Present: mucous membranes moist. Absent: TM's normal bilaterally, normal external ear exam - Expanded ENT Exam Expanded Ear exam: Present: normal external inspection Mouth exam: Absent: trismus Teeth exam: Present: dental caries (15), fractured tooth # (15), dental tenderness #. Absent: gingival enlargement Throat exam: Positive: normal inspection, other (uvula midline no swelling on stridor no wheezing no lesions no exudate ). Negative: tonsillar erythema, tonsillomegaly, tonsillar exudate, R peritonsillar mass, L peritonsillar mass - Neck Neck exam: Present: normal inspection, full ROM. Absent: tenderness, meningismus, lymphadenopathy, thyromegaly - Respiratory Respiratory exam: Present: normal lung sounds bilaterally. Absent: respiratory distress, wheezes, stridor, chest wall tenderness - Cardiovascular Cardiovascular Exam: Present: regular rate, normal rhythm, normal heart sounds. Absent: systolic murmur, diastolic murmur, rubs, gallop - GI/Abdominal GI/Abdominal exam: Present: soft, normal bowel sounds. Absent: distended, tenderness, bruit, hernia - Rectal Rectal exam: Present: deferred - Extremities Exam Extremities exam: Present: normal inspection, full ROM, normal capillary refill. Absent: tenderness - Back Exam Back exam: Present: normal inspection, full ROM. Absent: tenderness, rash noted - Neurological Exam Neurological exam: Present: alert, oriented X3, CN II-XII intact, normal gait, reflexes normal. Absent: motor sensory deficit - Psychiatric Psychiatric exam: Present: normal affect, normal mood - Skin Skin exam: Present: warm, dry, intact, normal color. Absent: rash ED Course Vital Signs 05/04/19 19:14 Temperature 98.7 F Pulse Rate 87 Respiratory 18 Rate Blood Pressure 142/77 O2 Sat by Pulse 95 Oximetry ED Medical Decision Making - Medical Decision Making This is infected dental carries plan: clindamycin, ultram , peridex follow up with dentist in 2-3 days return to ed if symptoms worsen. pt verbalized agreement and understanding of same. Critical care attestation.: If time is entered above; I have spent that time in minutes in the direct care of this critically ill patient, excluding procedure time. ED Disposition Clinical Impression: Infected dental carries Disposition: TO HOME OR SELFCARE Is pt being admited?: No Does the pt Need Aspirin: No Condition: Stable Instructions: Dental Caries (ED) Prescriptions: Clindamycin [Clindamycin CAP] 300 mg PO Q8H 10 Days #30 cap Chlorhexidine Mouthwash [Peridex] 15 ml MM BID #1 bottle traMADol [Ultram] 50 mg PO Q6HR PRN #12 tablet PRN Reason: Pain Referrals: [facility] [Outside] - 3-5 Days [facility] [Outside] - 3-5 Days Forms: Work/School Release Form(ED) Time of Disposition: 22:35
== END 2019-05-04 22:50 | disposition home or self-care (01) ==
LOC: ED 18:44
DX: K04.7 Periapical abscess without sinus (principal); K02.9 Dental caries, unspecified; M19.90 Unspecified osteoarthritis, unspecified site; J44.9 Chronic obstructive pulmonary disease, unspecified; Z98.51 Tubal ligation status; Z79.899 Other long term (current) drug therapy; Z88.6 Allergy status to analgesic agent
CPT/HCPCS: 99282

== ENCOUNTER 2019-08-29 07:29 | Emergency (ER) | payer MEDICAID ==
[2019-08-29] MEDS ORDERED: ONDANSETRON 4 MG/2 ML INJ IV ONE (08:26)
[2019-08-29] MEDS ORDERED: methylPREDNISolone Sod Succinate 125 MG/2 ML INJ IV ONE (08:26)
[2019-08-29] MEDS ORDERED: MORPHINE 4 MG/1 ML INJ IV ONE (08:26)
[2019-08-29] MEDS ORDERED: KETOROLAC 60 MG/2 ML INJ IVP ONE (08:26)
[2019-08-29 08:39] LABS: Bilirubin,Urine NEG (Negative); Blood,Urine NEG (Negative); Color,Urine Yellow (Yellow); Protein,Urine <15 mg/dL mg/dL (Negative); Urobilinogen,Urine < 2.0 mg/dL (<2.0)
[2019-08-29] MEDS ORDERED: HYDROcodone/ACETAMINOPHEN 5-325 MG TAB PO ONE (09:33)
--- NOTE | 2019-08-29 09:46 | Emergency Department Report ---
ED General Adult HPI - General Chief complaint: Back Pain/Injury Stated complaint: LOWER BACK PAIN Time Seen by Provider: 08/29/19 07:55 Source: patient Mode of arrival: Stretcher Limitations: No Limitations, Physical Limitation - History of Present Illness Initial comments: Patient presents to the emergency department with a chief complaint of sciatic nerve pain. Patient states he has a history of sciatic nerve issues and yesterday while at work she but the patient aggravated her sciatica. Patient states he radiates from her right Buttocks into her toes and describes it as an electrical sensation. Patient denies any issue with bowel or bladder -: Sudden Location: back Radiation: extremity Severity scale (0 -10): 8 Quality: burning, other (electrical) Consistency: constant Worsens with: movement Associated Symptoms: denies other symptoms Treatments Prior to Arrival: none - Related Data Previous Rx's Medication Instructions Recorded Last Taken Type predniSONE [Deltasone] 40 mg PO QDAY #10 tab 03/02/19 Unknown Rx ALBUTEROL NEB's [Proventil 0.083% 2.5 mg IH Q3HRT PRN #50 nebu 03/12/19 Unknown Rx NEBS] Arformoterol Nebu [Brovana Nebu] 15 mcg IH Q12HRT #1 ml 03/12/19 Unknown Rx Citalopram [Celexa] 20 mg PO QDAY #30 tablet 03/12/19 Unknown Rx Ipratropium [Atrovent NEB] 0.5 mg IH Q4HR #50 ml 03/12/19 Unknown Rx Pantoprazole [Protonix TAB] 40 mg PO QDAY 30 Days #30 tablet 03/12/19 Unknown Rx Prednisone [predniSONE 10 mg 10 mg PO .TAPER #1 tab.ds.pk 03/12/19 Unknown Rx (6-Day Pack, 21 Tabs)] levoFLOXacin [Levaquin TAB] 500 mg PO Q24HR #7 tablet 03/12/19 Unknown Rx traMADoL [Ultram 50 MG tab] 50 mg PO Q6H PRN #30 tablet 03/12/19 Unknown Rx Chlorhexidine Mouthwash [Peridex] 15 ml MM BID #1 bottle 05/04/19 Unknown Rx Clindamycin [Clindamycin CAP] 300 mg PO Q8H 10 Days #30 cap 05/04/19 Unknown Rx traMADoL [Ultram] 50 mg PO Q6HR PRN #12 tablet 05/04/19 Unknown Rx HYDROcodone/APAP 7.5-325 [Gobles 1 each PO Q6HR PRN #15 tablet 08/29/19 Unknown Rx 7.5/325] Ibuprofen [Motrin] 800 mg PO Q8HR PRN #30 tablet 08/29/19 Unknown Rx predniSONE [Deltasone] 20 mg PO DAILY #15 tablet 08/29/19 Unknown Rx Allergies Allergy/AdvReac Type Severity Reaction Status Date / Time aspirin Allergy Itching Verified 03/02/19 07:09 codeine Allergy Itching Verified 03/02/19 07:09 ED Review of Systems ROS: Stated complaint: LOWER BACK PAIN Other details as noted in HPI Constitutional: denies: chills, fever Eyes: denies: eye pain, eye discharge, vision change ENT: denies: ear pain, throat pain Respiratory: denies: cough, shortness of breath, wheezing Cardiovascular: denies: chest pain, palpitations Endocrine: no symptoms reported Gastrointestinal: denies: abdominal pain, nausea, diarrhea Genitourinary: denies: urgency, dysuria, discharge Musculoskeletal: denies: back pain, joint swelling, arthralgia Skin: denies: rash, lesions Neurological: denies: headache, weakness, paresthesias Psychiatric: denies: anxiety, depression Hematological/Lymphatic: denies: easy bleeding, easy bruising ED Past Medical Hx - Past Medical History Previous Medical History?: Yes Hx Arthritis: Yes Hx Asthma: Yes Hx COPD: Yes Additional medical history: emphysema - Surgical History Past Surgical History?: Yes Hx Breast Surgery: Yes Additional Surgical History: tubal ligation, pins placed in bilateral small fingers - Social History Smoking Status: Former Smoker Substance Use Type: None - Medications Home Medications: Home Medications Medication Instructions Recorded Confirmed Last Taken Type predniSONE [Deltasone] 40 mg PO QDAY #10 tab 03/02/19 03/07/19 Unknown Rx ALBUTEROL NEB's [Proventil 0.083% 2.5 mg IH Q3HRT PRN #50 nebu 03/12/19 Unknown Rx NEBS] Arformoterol Nebu [Brovana Nebu] 15 mcg IH Q12HRT #1 ml 03/12/19 Unknown Rx Citalopram [Celexa] 20 mg PO QDAY #30 tablet 03/12/19 Unknown Rx Ipratropium [Atrovent NEB] 0.5 mg IH Q4HR #50 ml 03/12/19 Unknown Rx Pantoprazole [Protonix TAB] 40 mg PO QDAY 30 Days #30 tablet 03/12/19 Unknown Rx Prednisone [predniSONE 10 mg 10 mg PO .TAPER #1 tab.ds.pk 03/12/19 Unknown Rx (6-Day Pack, 21 Tabs)] levoFLOXacin [Levaquin TAB] 500 mg PO Q24HR #7 tablet 03/12/19 Unknown Rx traMADoL [Ultram 50 MG tab] 50 mg PO Q6H PRN #30 tablet 03/12/19 Unknown Rx Chlorhexidine Mouthwash [Peridex] 15 ml MM BID #1 bottle 05/04/19 Unknown Rx Clindamycin [Clindamycin CAP] 300 mg PO Q8H 10 Days #30 cap 05/04/19 Unknown Rx traMADoL [Ultram] 50 mg PO Q6HR PRN #12 tablet 05/04/19 Unknown Rx HYDROcodone/APAP 7.5-325 [Gobles 1 each PO Q6HR PRN #15 tablet 08/29/19 Unknown Rx 7.5/325] Ibuprofen [Motrin] 800 mg PO Q8HR PRN #30 tablet 08/29/19 Unknown Rx predniSONE [Deltasone] 20 mg PO DAILY #15 tablet 08/29/19 Unknown Rx ED Physical Exam - General Limitations: No Limitations, Physical Limitation General appearance: alert, in no apparent distress - Head Head exam: Present: atraumatic, normocephalic - Eye Eye exam: Present: normal appearance - ENT ENT exam: Present: mucous membranes moist - Neck Neck exam: Present: normal inspection - Respiratory Respiratory exam: Present: normal lung sounds bilaterally. Absent: respiratory distress - Cardiovascular Cardiovascular Exam: Present: regular rate, normal rhythm. Absent: systolic murmur, diastolic murmur, rubs, gallop - GI/Abdominal GI/Abdominal exam: Present: soft, normal bowel sounds - Extremities Exam Extremities exam: Present: other (2 increased symptoms with palpation of the sciatic nerve in his outlet right side) - Back Exam Back exam: Present: normal inspection - Neurological Exam Neurological exam: Present: alert, oriented X3 - Psychiatric Psychiatric exam: Present: normal affect, normal mood - Skin Skin exam: Present: warm, dry, intact, normal color. Absent: rash ED Course Vital Signs 08/29/19 08/29/19 08/29/19 07:49 08:36 08:37 Temperature 97.9 F Pulse Rate 77 Respiratory 22 22 22 Rate Blood Pressure 137/58 Blood Pressure [Right] O2 Sat by Pulse 96 Oximetry 08/29/19 08/29/19 09:39 09:40 Temperature Pulse Rate 77 Respiratory 20 20 Rate Blood Pressure Blood Pressure 127/61 [Right] O2 Sat by Pulse 95 Oximetry Critical care attestation.: If time is entered above; I have spent that time in minutes in the direct care of this critically ill patient, excluding procedure time. ED Disposition Clinical Impression: Sciatica Disposition: DC-01 TO HOME OR SELFCARE Is pt being admited?: No Does the pt Need Aspirin: No Condition: Stable Instructions: Sciatica (ED) Additional Instructions: return if worse Referrals: [facility] [Provider Group] - 3-5 Days [facility] [Provider Group] - 3-5 Days Time of Disposition: 09:45
[2019-08-29 11:24] VITALS: BP 137/77
== END 2019-08-29 11:25 | disposition home or self-care (01) ==
LOC: ED 07:29
DX: M54.31 Sciatica, right side (principal); M19.90 Unspecified osteoarthritis, unspecified site; J43.9 Emphysema, unspecified; Z88.5 Allergy status to narcotic agent; Z88.6 Allergy status to analgesic agent; Z79.899 Other long term (current) drug therapy; Z79.1 Long term (current) use of non-steroidal anti-inflammatories (NSAID); Z98.51 Tubal ligation status; Z87.891 Personal history of nicotine dependence
CPT/HCPCS: 81001; 96374; 96375; 99284; J1885; J2270; J2405; J2930